=== PATIENT | female | born 1980 | race Hispanic/Latino ===

== ENCOUNTER 2016-05-24 19:50 | Emergency (ER) | payer OTHER ==
--- NOTE | 2016-05-24 20:21 | Emergency Department Report ---
HPI - General Time Seen by Provider: 05/24/16 20:07 - HPI HPI: Room 2 Patient is a female of unknown age presented with a chief complaint of overdose. Per EMS the received a call for altered mental status and felt the patient with a decreased level of consciousness. EMS states that someone at home and the patient may have taken GHB. There were no pill bottles found near the patient per EMS. EMS states the medicine Narcan 2 mg IV for there was no change in patient's mental status. Patient localizes to sternal rub by myself and speaks to nursing staff telling them her name Location: Mental State Duration: [see above] Quality: Decreased responsiveness Severity: Moderate Modifying factors: [see above] Context: [see above] Mode of transportation: [not driving] ED Past Medical Hx - Past Medical History Previous Medical History?: No Additional medical history: Unknown - Surgical History Past Surgical History?: No Additional Surgical History: Unknown - Family History Family history: no significant - Social History Smoking Status: Unknown if ever smoked - Medications Home Medications: Home Medications Medication Instructions Recorded Confirmed Last Taken Type Sulfamethoxazole/Trimethoprim 1 each PO BID #6 tablet 05/24/16 Unknown Rx [Bactrim DS TAB] ED Review of Systems ROS: Stated complaint: POSS OVERDOSE Other details as noted in HPI Comment: Unobtainable due to pts medical conditions Physical Exam - Physical Exam Physical Exam: GENERAL: The patient is well-developed well-nourished female lying on stretcher with decreased responsiveness. [] HEENT: Normocephalic. Atraumatic. Pupils reactive 4 mm to 3 mm bilaterally NECK: Supple. Trachea midline CHEST/LUNGS: Clear to auscultation. There is no respiratory distress noted. HEART/CARDIOVASCULAR: Regular. There is no tachycardia. There is no gallop rub or murmur. ABDOMEN: Abdomen is soft, nontender. Patient has normal bowel sounds. There is no abdominal distention. SKIN: There is no rash. There is no edema. There is no diaphoresis. NEURO: The patient is decreased responsiveness. Patient localizes to sternal rub and moans. MUSCULOSKELETAL: There is no evidence of acute injury. ED Course - Reevaluation(s) Reevaluation #1: 05/24/16 21:04 Patient awake and talking at this time. Patient states she does not remember what happened earlier. When confronted about GHB the patient states "I don't remember." 05/24/16 23:03 Patient remains awake and alert without complaints except from nausea secondary to hunger. Workup has been negative except for amphetamines and benzodiazepines. Urine positive nitrites and leukocyte esterase we'll treat the patient for UTI as well.. Patient to be discharged to friends or family - Consultations Consultation #1: 05/24/16 23:03 ED Medical Decision Making - Lab Data Result diagrams: 05/24/16 20:26 05/24/16 20:26 Laboratory Tests 05/24/16 05/24/16 05/24/16 20:26 20:26 20:26 WBC 6.4 RBC 4.90 Hgb 12.7 Hct 40.8 MCV 83 MCH 26 L MCHC 31 RDW 15.3 H Plt Count 271 Lymph % (Auto) 22.5 [place] % (Auto) 9.1 H Eos % (Auto) 2.9 Baso % (Auto) 0.6 Lymph # 1.4 [place] # 0.6 Eos # 0.2 Baso # 0.0 Seg Neutrophils % 64.9 Seg Neutrophils # 4.1 APTT 32.0 Sodium 138 Potassium 4.9 Chloride 99.4 Carbon Dioxide 22 Anion Gap 22 BUN 14 Creatinine 0.6 L Estimated GFR > 60 BUN/Creatinine Ratio 23.33 Glucose 91 Calcium 9.1 Total Bilirubin 0.8 AST 55 H ALT 41 Alkaline Phosphatase 65 Ammonia Total Creatine Kinase CK-MB (CK-2) CK-MB (CK-2) Rel Index Troponin T NT-Pro-B Natriuret Pep Total Protein 7.9 Albumin 4.2 Albumin/Globulin Ratio 1.1 TSH Free T4 Urine Color Urine Turbidity Urine pH Ur Specific Stewart Urine Protein Urine Glucose (UA) Urine Ketones Urine Blood Urine Nitrite Ur Reducing Substances Urine Bilirubin Urine Ictotest Urine Urobilinogen Ur Leukocyte Esterase Urine WBC (Auto) Urine RBC (Auto) U Epithel Cells (Auto) Calcium Oxalate Crystal Urine Mucus Urine HCG, Qual Salicylates Urine Opiates Screen Urine Methadone Screen Acetaminophen Ur Barbiturates Screen Ur Phencyclidine Scrn Ur Amphetamines Screen U Benzodiazepines Scrn Urine Cocaine Screen U Marijuana (THC) Screen Drugs of Abuse Note Plasma/Serum Alcohol 05/24/16 05/24/16 05/24/16 20:26 20:26 20:26 WBC RBC Hgb Hct MCV MCH MCHC RDW Plt Count Lymph % (Auto) [place] % (Auto) Eos % (Auto) Baso % (Auto) Lymph # [place] # Eos # Baso # Seg Neutrophils % Seg Neutrophils # APTT Sodium Potassium Chloride Carbon Dioxide Anion Gap BUN Creatinine Estimated GFR BUN/Creatinine Ratio Glucose Calcium Total Bilirubin AST ALT Alkaline Phosphatase Ammonia 58.0 Total Creatine Kinase 298 H CK-MB (CK-2) 6.4 H CK-MB (CK-2) Rel Index 2.1 Troponin T < 0.010 NT-Pro-B Natriuret Pep 47.03 Total Protein Albumin Albumin/Globulin Ratio TSH 1.030 Free T4 1.48 H Urine Color Urine Turbidity Urine pH Ur Specific Stewart Urine Protein Urine Glucose (UA) Urine Ketones Urine Blood Urine Nitrite Ur Reducing Substances Urine Bilirubin Urine Ictotest Urine Urobilinogen Ur Leukocyte Esterase Urine WBC (Auto) Urine RBC (Auto) U Epithel Cells (Auto) Calcium Oxalate Crystal Urine Mucus Urine HCG, Qual Salicylates Urine Opiates Screen Urine Methadone Screen Acetaminophen Ur Barbiturates Screen Ur Phencyclidine Scrn Ur Amphetamines Screen U Benzodiazepines Scrn Urine Cocaine Screen U Marijuana (THC) Screen Drugs of Abuse Note Plasma/Serum Alcohol 05/24/16 05/24/16 05/24/16 20:26 20:26 20:26 WBC RBC Hgb Hct MCV MCH MCHC RDW Plt Count Lymph % (Auto) [place] % (Auto) Eos % (Auto) Baso % (Auto) Lymph # [place] # Eos # Baso # Seg Neutrophils % Seg Neutrophils # APTT Sodium Potassium Chloride Carbon Dioxide Anion Gap BUN Creatinine Estimated GFR BUN/Creatinine Ratio Glucose Calcium Total Bilirubin AST ALT Alkaline Phosphatase Ammonia Total Creatine Kinase CK-MB (CK-2) CK-MB (CK-2) Rel Index Troponin T NT-Pro-B Natriuret Pep Total Protein Albumin Albumin/Globulin Ratio TSH Free T4 Urine Color Urine Turbidity Urine pH Ur Specific Stewart Urine Protein Urine Glucose (UA) Urine Ketones Urine Blood Urine Nitrite Ur Reducing Substances Urine Bilirubin Urine Ictotest Urine Urobilinogen Ur Leukocyte Esterase Urine WBC (Auto) Urine RBC (Auto) U Epithel Cells (Auto) Calcium Oxalate Crystal Urine Mucus Urine HCG, Qual Salicylates < 0.3 L Urine Opiates Screen Urine Methadone Screen Acetaminophen < 15.0 Ur Barbiturates Screen Ur Phencyclidine Scrn Ur Amphetamines Screen U Benzodiazepines Scrn Urine Cocaine Screen U Marijuana (THC) Screen Drugs of Abuse Note Plasma/Serum Alcohol < 0.01 02/12/17 02/12/17 21:25 21:25 WBC RBC Hgb Hct MCV MCH MCHC RDW Plt Count Lymph % (Auto) [place] % (Auto) Eos % (Auto) Baso % (Auto) Lymph # [place] # Eos # Baso # Seg Neutrophils % Seg Neutrophils # APTT Sodium Potassium Chloride Carbon Dioxide Anion Gap BUN Creatinine Estimated GFR BUN/Creatinine Ratio Glucose Calcium Total Bilirubin AST ALT Alkaline Phosphatase Ammonia Total Creatine Kinase CK-MB (CK-2) CK-MB (CK-2) Rel Index Troponin T NT-Pro-B Natriuret Pep Total Protein Albumin Albumin/Globulin Ratio TSH Free T4 Urine Color Yellow Urine Turbidity Clear Urine pH 5.0 Ur Specific Stewart 1.027 Urine Protein <15 mg/dl Urine Glucose (UA) Neg Urine Ketones Tr Urine Blood Neg Urine Nitrite Pos Ur Reducing Substances Not Reportable Urine Bilirubin Neg Urine Ictotest Not Reportable Urine Urobilinogen 2.0 Ur Leukocyte Esterase Tr Urine WBC (Auto) 1.0 Urine RBC (Auto) 4.0 U Epithel Cells (Auto) 1.0 Calcium Oxalate Crystal 1+ Urine Mucus 3+ Urine HCG, Qual Negative Salicylates Urine Opiates Screen Presumptive negative Urine Methadone Screen Presumptive negative Acetaminophen Ur Barbiturates Screen Presumptive negative Ur Phencyclidine Scrn Presumptive negative Ur Amphetamines Screen Presumptive positive U Benzodiazepines Scrn Presumptive positive Urine Cocaine Screen Presumptive negative U Marijuana (THC) Screen Presumptive negative Drugs of Abuse Note Disclamer Plasma/Serum Alcohol - EKG Data -: EKG Interpreted by Me EKG shows normal: sinus rhythm Rate: normal - EKG Data When compared to previous EKG there are: previous EKG unavailable Interpretation: nonspecific ST-T wave lena (T-wave inversions in leads 1 and aVL) - Radiology Data Radiology results: report reviewed (CT head), image reviewed (CT head) CT head (read by radiologist)-normal examination - Differential Diagnosis GHB overdose, substance abuse, alcohol intoxication, ICH Critical care attestation.: If time is entered above; I have spent that time in minutes in the direct care of this critically ill patient, excluding procedure time. ED Disposition Clinical Impression: Polysubstance abuse, UTI (urinary tract infection) Disposition: DISCHARGED TO HOME OR SELFCARE Is pt being admited?: No Does the pt Need Aspirin: No Condition: Stable Instructions: Methamphetamine Abuse (ED) Additional Instructions: Return to the emergency department immediately should you develop worsening symptoms, fever, inability to tolerate food or liquid or any other concerns. Prescriptions: Sulfamethoxazole/Trimethoprim [Bactrim DS TAB] 1 each PO BID #6 tablet Time of Disposition: 23:02 (DC to family)
[2016-05-24 21:01] LABS: Albumin 4.2 g/dL (3.9-5); Albumin/Globulin Ratio 1.1 %; Alkaline Phosphatase 65 units/L (35-129); BUN/Creatinine Ratio 23.33; Basophils % (Auto) 0.6 % (0.0-1.8); Bilirubin,Total 0.8 mg/dL (0.1-1.2); Blood Urea Nitrogen 14 mg/dL (7-17); Calcium 9.1 mg/dL (8.4-10.2); Carbon Dioxide 22 mmol/L (22-30); Chloride 99.4 mmol/L (98-107); Eosinophils % (Auto) 2.9 % (0.0-4.3); Glucose 91 mg/dL (65-100); Hematocrit 40.8 % (30.3-42.9); Hemoglobin 12.7 gm/dl (10.1-14.3); Mean Corpuscular HGB Conc 31 % (30-34); Mean Corpuscular Volume 83 fl (79-97); Platelet Count 271 K/mm3 (140-440); Red Cell Distribution Width 15.3 % (13.2-15.2); Sodium 138 mmol/L (137-145); Total Protein 7.9 g/dL (6.3-8.2); White Blood Count 6.4 K/mm3 (4.5-11.0)
[2016-05-24 21:03] LABS: Creatine Kinase 298 units/L (30-135); Creatine Kinase MB 6.4 ng/mL (0.0-4.0)
[2016-05-24 21:10] LABS: Mean Corpuscular Hemoglobin 26 pg (28-32)
[2016-05-24 21:32] LABS: Urine Drugs of Abuse Note Disclamer
[2016-05-24 21:41] LABS: Bilirubin,Urine NEG (Negative); Blood,Urine NEG (Negative); Ketones,Urine TR mg/dL (Negative); Leukocyte Esterase,Urine TR (Negative); Mucus,Urine 3+ /HPF; Nitrite,Urine POS (Negative); Protein,Urine <15 mg/dL mg/dL (Negative)
--- NOTE | 2016-05-24 22:34 | Cat Scan Report ---
FINAL REPORT PROCEDURE: CT HEAD/BRAIN WO CON TECHNIQUE: Computerized tomography of the head was performed without contrast material. HISTORY: decreased level of consciousness COMPARISON: No prior studies are available for comparison. FINDINGS: Skull and scalp: Normal. Paranasal sinuses: Normal. Ventricles and subarachnoid spaces: Normal. Cerebrum: No evidence of hemorrhage, acute infarction or mass . Cerebellum and brainstem: No evidence of hemorrhage, acute infarction or mass. Vasculature: Normal. Comments: None. IMPRESSION: Normal Examination
[2016-05-24 22:50] LABS: Alanine Aminotransferase 41 units/L (7-56); Anion Gap 22 mmol/L; Potassium 4.9 mmol/L (3.6-5.0)
[2016-05-24] MEDS ORDERED: ZOFRAN IV ONE (23:00)
[2016-05-25 09:46] VITALS: BP 109/71
== END 2016-05-25 07:45 | disposition home or self-care (01) ==
LOC: ED 19:50
DX: F19.10 Other psychoactive substance abuse, uncomplicated (principal); N39.0 Urinary tract infection, site not specified
CPT/HCPCS: 36415; 51702; 70450; 80053; 80307; 82140; 82550; 82553; 82962; 83880; 84439; 84443; 84484; 85025; 85730; 99284; G0480; 80320